=== PATIENT | female | born 1980 | race African-American/Black ===

== ENCOUNTER 2019-01-07 10:47 | Emergency (ER) | payer SELFPAY ==
[~2019-01-07] VITALS: Ht 170.2 cm; Wt 117.9 kg
[2019-01-07] MEDS ORDERED: cloNIDine HCL 0.1 MG TAB ONE (11:32)
[2019-01-07] MEDS ORDERED: cloNIDine HCL 0.1 MG TAB PO ONE ×2 (11:45→13:00)
[2019-01-07 12:02] VITALS: BP 174/105
== END 2019-01-07 14:20 | disposition home or self-care (01) ==
LOC: ER 10:47
DX: H10.32 Unspecified acute conjunctivitis, left eye (principal); I10 Essential (primary) hypertension